=== PATIENT | male | born 1980 | race Caucasian/White ===

== ENCOUNTER 2019-01-17 22:58 | Emergency (ER) | payer MEDICAID ==
[~2019-01-17] VITALS: Ht 182.9 cm; Wt 99.8 kg
--- NOTE | 2019-01-17 23:15 | NUR ---
called in, no answer
[2019-01-18] VITALS: BP_SYST 124
--- NOTE | 2019-01-18 00:01 | NUR ---
Patient to ER bed 5 to gown for evaluation. Side rails up.
--- NOTE | 2019-01-18 00:06 | NUR ---
Pt complains of headache, cough and body aches for the past week. pt denies N/V/D or fever. No other injuries/complaints per patient or noted.
--- NOTE | 2019-01-18 00:15 | NUR ---
ER Dr. Guevara at bedside examining patient.
[2019-01-18 00:46] VITALS: BP_SYST 124
--- NOTE | 2019-01-18 00:46 | NUR ---
Patient given written and verbal discharge instructions and verbalizes understanding. ER MD discussed with patient the results and treatment provided. Patient in stable condition. ID arm band removed. Rx of Promethazine and Amoxicillin given. Patient educated on pain management and to follow up with PMD. Pain Scale 0. Opportunity for questions provided and answered. Medication side effect fact sheet provided.
== END 2019-01-18 00:46 | disposition home or self-care (01) ==
LOC: SED 22:58
DX: J20.9 Acute bronchitis, unspecified (principal)
CPT/HCPCS: 99283

== ENCOUNTER 2019-04-13 15:57 | Emergency (ER) | payer MEDICAID ==
[~2019-04-13] VITALS: Ht 185.4 cm; Wt 95.3 kg
[2019-04-13 16:03] VITALS: BP_SYST 153
--- NOTE | 2019-04-13 16:20 | NUR ---
Patient to ER bed 2 to gown for evaluation. Side rails up. Report given to Gurjit BRENNER.
--- NOTE | 2019-04-13 16:23 | NUR ---
C/O bilat eye redness, discharge from eye in the AM. Patient reports that he has a and thinks that he got pink eye from her.
--- NOTE | 2019-04-13 16:25 | NUR ---
CROINA Guo at bedside examining patient.
[2019-04-13 17:00] VITALS: BP_SYST 153
--- NOTE | 2019-04-13 17:00 | NUR ---
Patient given written and verbal discharge instructions and verbalizes understanding. ER MD discussed with patient the results and treatment provided. Patient in stable condition. ID arm band removed. IV catheter removed intact and dressing applied, no active bleeding. Rx of erythromycin given. Patient educated on pain management and to follow up with PMD. Pain Scale 0. Opportunity for questions provided and answered. Medication side effect fact sheet provided.
== END 2019-04-13 17:00 | disposition home or self-care (01) ==
LOC: SED 15:57
DX: H10.9 Unspecified conjunctivitis (principal); R03.0 Elevated blood-pressure reading, without diagnosis of hypertension; F17.210 Nicotine dependence, cigarettes, uncomplicated; Z71.6 Tobacco abuse counseling
CPT/HCPCS: 99283

== ENCOUNTER 2021-04-03 23:50 | Emergency (ER) | payer MEDICAID ==
[~2021-04-03] VITALS: Ht 185.4 cm; Wt 99.8 kg
[2021-04-04 00:05] VITALS: BP_SYST 143
[2021-04-04] MEDS ORDERED: NAPR-686 PO (01:38)
[2021-04-04] MEDS ORDERED: TOBR3.5O2 EACH EYE (01:38)
[2021-04-04 01:45] VITALS: BP_SYST 143
== END 2021-04-04 01:45 | disposition home or self-care (01) ==
LOC: SED 23:50
DX: B30.9 Viral conjunctivitis, unspecified (principal); Z79.899 Other long term (current) drug therapy
CPT/HCPCS: 99283

== ENCOUNTER 2022-03-26 19:21 | Emergency (ER) | payer MEDICAID ==
[~2022-03-26] VITALS: Ht 182.9 cm; Wt 99.8 kg
[~2022-03-26 19:21] MED LIST: NAPR-686 PO; TOBR3.5O2 EACH EYE
[2022-03-26 19:30] VITALS: BP_SYST 160
--- NOTE | 2022-03-26 19:30 | NUR ---
Patient triaged and placed in waiting room. VSS and patient appears in no acute distress at this time. Awaiting available bed, and MD notified of need for MSE.
--- NOTE | 2022-03-26 20:00 | NUR ---
Pt unable to give urine .
--- NOTE | 2022-03-26 21:30 | NUR ---
Called pt name in the waiting room.No Answer.
--- NOTE | 2022-03-26 21:35 | NUR ---
Called pt name in the waiting room.No Answer.
--- NOTE | 2022-03-26 21:40 | NUR ---
Called pt name in the waiting room.No Answer.
[2022-03-27] MEDS ORDERED: DOXY100C5 PO (01:48)
== END 2022-03-26 21:40 | disposition left against medical advice (07) ==
LOC: SED 19:21
DX: R31.9 Hematuria, unspecified (principal); Z53.21 Procedure and treatment not carried out due to patient leaving prior to being seen by health care provider

== ENCOUNTER 2022-03-26 23:53 | Emergency (ER) | payer MEDICAID ==
[~2022-03-26] VITALS: Ht 182.9 cm; Wt 99.8 kg
[2022-03-27 00:52] VITALS: BP_SYST 147
[2022-03-27 01:00] LABS: BILIRUBIN,URINE 1+ (NEGATIVE); BLOOD, URINE 3+ (NEGATIVE); CLARITY/URINE CLEAR (CLEAR); COLOR,URINE BROWN (YELLOW); GLUCOSE,URINE NEGATIVE (NEGATIVE); KETONES,URINE NEGATIVE (NEGATIVE); LEUKOCYTE ESTERASE ,URINE NEGATIVE (NEGATIVE); NITRITE, URINE NEGATIVE (NEGATIVE); PROTEIN URINE 2+ (NEGATIVE); UROBILINOGEN,URINE 0.2 (0.2-1.0)
[2022-03-27 01:15] LABS: BACTERIA,URINE MODERATE /HPF (None Seen); MUCUS,URINE 2+ /LPF (None Seen); RBC,URINE >100 /HPF (0-3)
[2022-03-27] MEDS ORDERED: cefTRIAXone 1 GM in LIDOCAINE 1%, 20 ML MDV 2.1 ML IM ONE (01:15)
--- NOTE | 2022-03-27 01:15 | NUR ---
Patient to ER bed tobar to gown for evaluation. Side rails up.
--- NOTE | 2022-03-27 01:16 | NUR ---
ER at bedside examining patient.
[2022-03-27] MEDS ORDERED: AZITHROMYCIN 250 MG TABLET PO ONE (01:30)
[2022-03-27] MEDS ORDERED: DOXY100C5 PO (01:48)
--- NOTE | 2022-03-27 02:03 | NUR ---
Patient given written and verbal discharge instructions by Dr Urena and verbalizes understanding. ER MD discussed with patient the results and treatment provided. Patient in stable condition. ID arm band removed. Rx of Doxycycline given. Patient educated on pain management and to follow up with PMD. Pain Scale 0/10. Opportunity for questions provided and answered. Medication side effect fact sheet provided.
[2022-03-27 02:05] VITALS: BP_SYST 150
== END 2022-03-27 02:05 | disposition home or self-care (01) ==
LOC: SED 23:53
DX: Z20.2 Contact with and (suspected) exposure to infections with a predominantly sexual mode of transmission (principal); Z79.899 Other long term (current) drug therapy
CPT/HCPCS: 81000; 87086; 96372; 99283; J0696; J2001; Q0144